=== PATIENT | male | born 1995 | race Caucasian/White ===

== ENCOUNTER 2018-09-19 16:06 | Emergency (ER) | payer SELFPAY ==
[2018-09-19] MEDS ORDERED: Proparacaine 0.5% Opth 15 ML BOT ONE (16:10)
[2018-09-19] MEDS ORDERED: Fluorescein Opthalmic Strip ONE (16:10)
== END 2018-09-19 16:28 | disposition home or self-care (01) ==
LOC: NAV ERS 16:06
DX: H10.9 Unspecified conjunctivitis (principal); I10 Essential (primary) hypertension
CPT/HCPCS: 99282